=== PATIENT | male | born 1975 ===

== ENCOUNTER → 2023-03-11 | Outpatient (CLI) | payer BC, OTHER ==
[2023-03-13 15:12] LABS: CHLAMYDIA BY NAA Negative (Negative); GONOCOCCUS BY NAA Negative (Negative); TRICH VAG BY NAA Negative (Negative)
== END | disposition home or self-care (01) ==
LOC: LAB SHORT 16:13
PROVIDERS: Physician Assistant Medical
DX: R39.15 Urgency of urination (principal)
CPT/HCPCS: 87077; 87086; 87186; 87491; 87591; 87661

== ENCOUNTER 2023-05-06 16:24 | Emergency (ER) | payer OTHER ==
[~2023-05-06] VITALS: Ht 177.8 cm; Wt 77.1 kg
[2023-05-06 16:32] VITALS: BP 155/97
[2023-05-06] MEDS ORDERED: SULTRIDS PO (17:23)
== END 2023-05-06 17:38 | disposition home or self-care (01) ==
LOC: ER 16:24
DX: L03.211 Cellulitis of face (principal)
CPT/HCPCS: 99282

== ENCOUNTER → 2023-06-23 | Outpatient (CLI) | payer OTHER ==
[~2023-06-23] MED LIST: SULTRIDS PO
[2023-06-25 01:14] LABS: CHLAMYDIA TRACHOMATIS, NAA Negative (Negative)
== END | disposition home or self-care (01) ==
LOC: LAB 14:25 → LAB SHORT 14:25
PROVIDERS: Physician Assistant Medical
DX: R39.89 Other symptoms and signs involving the genitourinary system (principal)
CPT/HCPCS: 87086; 87491; 87591